=== PATIENT | male | born 1980 | race Caucasian/White ===

== ENCOUNTER → 2018-07-14 | Outpatient (CLI) | payer OTHER ==
--- NOTE | 2018-07-14 12:59 | Diagnostic Imaging Report ---
EXAMINATION: Bilateral knees. INDICATION: Knee pain. FINDINGS: Three views of each knee joint were obtained. There are no prior studies available for comparison. There is no fracture, dislocation, or acute bony abnormality evident. The knee joints are well maintained. The soft tissues are unremarkable. IMPRESSION: 1. There is no evidence for an acute bony abnormality of either knee joint. 2. If there is clinical concern regarding internal derangement, then MRI will be recommended for further evaluation. Dictated by: Dictated on workstation # [id number]
== END ==
LOC: RAD 12:29
PROVIDERS: ATTEND Nurse Practitioner Adult Health
DX: M25.569 Pain in unspecified knee (principal)